=== PATIENT | female | born 1955 | race Caucasian/White ===

== ENCOUNTER 2021-08-04 15:52 | Inpatient (IN) ==
[2021-08-04] MEDS ORDERED: ASPIRIN 325 MG TABLET ONE (16:09)
[2021-08-04] MEDS ORDERED: HEPARIN 5,000 UNIT/1 ML VIAL ONE (16:09)
[2021-08-04] MEDS ORDERED: MORPHINE 2 MG/1 ML SYRINGE ONE (16:13)
[2021-08-04] MEDS ORDERED: NITROGLYCERIN SL 0.4 MG TABLET SL ONE (16:14)
[2021-08-04] MEDS ORDERED: ONDANSETRON 4 MG/2 ML VIAL ONE (16:14)
[2021-08-04] MEDS ORDERED: TIROFIBAN 5,000 MCG/100 ML PREMIX IV ONE ×2 (16:14→16:34)
[2021-08-04] MEDS ORDERED: TIROFIBAN IV ONE (16:16)
[2021-08-04] MEDS ORDERED: MORPHINE 2 MG/1 ML SYRINGE IV STA (16:17)
[2021-08-04] MEDS ORDERED: HEPARIN 5,000 UNIT/1 ML VIAL IV ONE (16:17)
[2021-08-04] MEDS ORDERED: ASPIRIN CHEW 81 MG TABLET PO STA (16:17)
[2021-08-04] MEDS ORDERED: NITROGLYCERIN SL 0.4 MG TABLET SL STA (16:17)
[2021-08-04] MEDS ORDERED: HYDROmorphone 1 MG/1 ML SYRINGE ONE (16:24)
[2021-08-04] MEDS ORDERED: MIDAZOLAM 2 MG/2 ML VIAL ONE (16:24)
[2021-08-04] MEDS ORDERED: MAGNESIUM SULF RIDER 2 GM/50 ML PREMIX IV PRN (16:28)
[2021-08-04] MEDS ORDERED: MORPHINE 2 MG/1 ML SYRINGE IV PRN (16:28)
[2021-08-04] MEDS ORDERED: ALUMINUM/MAGNES/SIMETH MAX STR 30 ML UDCUP PO PRN (16:28)
[2021-08-04] MEDS ORDERED: ZALEPLON 5 MG CAPSULE PO PRN (16:28)
[2021-08-04] MEDS ORDERED: guaiFENesin/DM ER 600-30 MG TABLET PO PRN (16:28)
[2021-08-04] MEDS ORDERED: POTASSIUM CHLORIDE 20 MEQ TABLET PO PRN (16:28)
[2021-08-04] MEDS ORDERED: hydrALAZINE 20 MG/1 ML VIAL IV PRN (16:28)
[2021-08-04] MEDS ORDERED: ACETAMINOPHEN 325 MG TABLET PO PRN (16:28)
[2021-08-04] MEDS ORDERED: DOCUSATE SODIUM 100 MG CAPSULE PO PRN (16:28)
[2021-08-04] MEDS ORDERED: diphenhydrAMINE CAP 25 MG CAPSULE PO PRN (16:28)
[2021-08-04] MEDS ORDERED: MAGNESIUM SULF RIDER 4 GM/100 ML PREMIX IV PRN (16:28)
[2021-08-04] MEDS ORDERED: ONDANSETRON 4 MG/2 ML VIAL IV PRN (16:28)
[2021-08-04] MEDS ORDERED: TIROFIBAN 5,000 MCG/100 ML PREMIX IV SCH ×2 (16:30→17:05)
[2021-08-04] MEDS ORDERED: ATROPINE 1 MG/10 ML SYRINGE ONE (16:37)
[2021-08-04 16:38] LABS: Hemoglobin 13.6 GM/DL (12.0-16.0); Immature Granulocytes % 0.6 %; Immature Granulocytes Absolute 0.03 #; Lymphocytes # 1.2 10*3/uL (1.4-4.0); Lymphocytes % 24.2 % (21.3-54.2); Mean Corpuscular HGB Conc 33.2 GM/DL (32-36); Mean Corpuscular Volume 87.6 FL (87-102); Mean Platelet Volume 9.8 FL (9.6-12.0); Monocytes % 14.5 % (1.7-12.7); Neutrophils % 60.7 % (38.7-73.9); Platelet Count 176 T/CUMM (130-400); Red Blood Count 4.68 MC/CUMM (3.8-5.5); Red Cell Distribution Width 14.2 % (9.3-17.3)
[2021-08-04 16:52] LABS: Alanine Aminotransferase 22 U/L (13-56); Albumin 3.5 G/DL (3.4-5.0); Alkaline Phosphatase 104 U/L (45-117); Aspartate Amino Transferase 22 U/L (0-37); Blood Urea Nitrogen 12 MG/DL (7-18); Calcium 8.9 MG/DL (8.5-10.1); Carbon Dioxide 23 MMOL/L (21-32); Estimated Glom Filtration Rate 87 ML/MIN; Glucose 151 MG/DL (74-106); Osmolality,Calculated 277.7 MOS/KG (273-304); Potassium 3.5 MMOL/L (3.5-5.1); Sodium 138 MMOL/L (136-145); Total Protein 7.6 G/DL (6.4-8.2)
[2021-08-04] MEDS ORDERED: PRASUGREL 10 MG TABLET ONE (17:01)
[2021-08-04 17:21] LABS: INR 1.1; PT Patient Result 12.3 SECS (10.5-12.0)
[2021-08-04 17:24] LABS: Partial Thromboplastin Time > 211.8 SECS (23.8-32.1)
[2021-08-04] MEDS: SODIUM CHLORIDE 0.45% 1,000 ML IV SCH (17:48)
[2021-08-04] MEDS ORDERED: TICAGRELOR 90 MG TABLET PO SCH (21:00)
[2021-08-04] MEDS ORDERED: POTASSIUM CHLORIDE 20 MEQ TABLET PO ONE (21:19)
[2021-08-04] MEDS ORDERED: AMIODARONE INJ 150 MG in DEXTROSE 5% 100 ML IV ONE (21:20)
[2021-08-04] MEDS ORDERED: AMIODARONE INJ 450 MG in DEXTROSE 5% 241 ML IV SCH (21:30)
[2021-08-04] MEDS: ROSUVASTATIN 20 MG TABLET PO SCH (22:00)
[2021-08-05] MEDS: SODIUM CHLORIDE 0.45% 1,000 ML IV SCH (01:38)
[2021-08-05] MEDS ORDERED: AMIODARONE INJ 450 MG in DEXTROSE 5% 241 ML IV SCH (03:30)
[2021-08-05 06:12] LABS: Hematocrit 35.5 VOL% (35.7-47.0); Hemoglobin 11.8 GM/DL (12.0-16.0); Lymphocytes # 1.6 10*3/uL (1.4-4.0); Lymphocytes % 34.4 % (21.3-54.2); Mean Corpuscular HGB Conc 33.2 GM/DL (32-36); Mean Corpuscular Volume 86.8 FL (87-102); Mean Platelet Volume 9.6 FL (9.6-12.0); Monocytes % 11.8 % (1.7-12.7); Neutrophils % 53.8 % (38.7-73.9); Platelet Count 161 T/CUMM (130-400); Red Blood Count 4.09 MC/CUMM (3.8-5.5); Red Cell Distribution Width 14.4 % (9.3-17.3); White Blood Count 4.5 T/CUMM (4-12)
[2021-08-05 06:43] LABS: Calcium 8.1 MG/DL (8.5-10.1); Risk Ratio 4.41; Thyroid Stimulating Hormone 0.175 uIU/ml (0.358-3.74); VLDL Cholesterol 33.2 MG/DL
[2021-08-05] MEDS: TICAGRELOR 90 MG TABLET PO SCH ×2 (09:41→20:08)
[2021-08-05] MEDS: ASPIRIN EC 81 MG TABLET PO SCH (09:41)
[2021-08-05] MEDS: METOPROLOL TARTRATE 25 MG TABLET PO SCH ×2 (09:41→20:08)
[2021-08-05] MEDS: PANTOPRAZOLE 40 MG TABLET PO SCH (09:42)
[2021-08-05] MEDS: ROSUVASTATIN 20 MG TABLET PO SCH (20:08)
[2021-08-05] MEDS: AMIODARONE 200 MG TABLET PO SCH (20:08)
[2021-08-06 05:39] LABS: Hematocrit 37.5 VOL% (35.7-47.0); Immature Granulocytes % 0.3 %; Immature Granulocytes Absolute 0.02 #; Lymphocytes # 1.1 10*3/uL (1.4-4.0); Lymphocytes % 17.6 % (21.3-54.2); Mean Corpuscular Volume 90.1 FL (87-102); Monocytes % 8.1 % (1.7-12.7); Platelet Count 132 T/CUMM (130-400); Red Blood Count 4.16 MC/CUMM (3.8-5.5); White Blood Count 6.2 T/CUMM (4-12)
[2021-08-06 06:20] LABS: Albumin 2.9 G/DL (3.4-5.0); Bilirubin,Total 0.4 MG/DL (0.20-1.00); Calcium 8.4 MG/DL (8.5-10.1); Osmolality,Calculated 270.1 MOS/KG (273-304); Potassium 4.4 MMOL/L (3.5-5.1); Total Protein 6.4 G/DL (6.4-8.2)
[2021-08-06] MEDS: ASPIRIN EC 81 MG TABLET PO SCH (08:08)
[2021-08-06] MEDS: TICAGRELOR 90 MG TABLET PO SCH ×2 (08:08→20:28)
[2021-08-06] MEDS: AMIODARONE 200 MG TABLET PO SCH ×2 (08:08→20:28)
[2021-08-06] MEDS: PANTOPRAZOLE 40 MG TABLET PO SCH (08:08)
[2021-08-06] MEDS: METOPROLOL TARTRATE 25 MG TABLET PO SCH ×2 (08:08→20:28)
[2021-08-06] MEDS ORDERED: FUROSEMIDE 40 MG/4 ML VIAL IV ONE (17:56)
[2021-08-06] MEDS ORDERED: ALBUTEROL/IPRATROPIUM 3 ML NEB RESP TX ONE (17:56)
[2021-08-06] MEDS: ROSUVASTATIN 20 MG TABLET PO SCH (20:27)
[2021-08-07 05:40] LABS: Albumin 3.1 G/DL (3.4-5.0); Bilirubin,Total 0.6 MG/DL (0.20-1.00); Calcium 8.4 MG/DL (8.5-10.1); Potassium 3.2 MMOL/L (3.5-5.1); Total Protein 6.5 G/DL (6.4-8.2)
[2021-08-07] MEDS ORDERED: POTASSIUM CHLORIDE 20 MEQ TABLET PO ONE (07:52)
[2021-08-07] MEDS: METOPROLOL TARTRATE 25 MG TABLET PO SCH (08:24)
[2021-08-07] MEDS: ASPIRIN EC 81 MG TABLET PO SCH (08:24)
[2021-08-07] MEDS: PANTOPRAZOLE 40 MG TABLET PO SCH (08:24)
[2021-08-07] MEDS: AMIODARONE 200 MG TABLET PO SCH (08:24)
[2021-08-07] MEDS: TICAGRELOR 90 MG TABLET PO SCH (08:24)
[2021-08-07 11:49] VITALS: BP 94/49
== END 2021-08-07 14:27 | disposition home or self-care (01) | DRG 247 ==
LOC: N.ED 15:52 → N.CC 16:15 → N.EDINP 16:25 → N.CC 17:11 → N.TELES 08-06 17:57
PROVIDERS: ADMIT Internal Medicine Cardiovascular Disease; ATTEND Internal Medicine Cardiovascular Disease
PROC: CLCCHCL (ICD-10-PCS; 2021-08-04 17:00)

== ENCOUNTER 2022-01-09 05:48 | Observation (INO) ==
[2022-01-09] MEDS ORDERED: TICAGRELOR 90 MG TABLET PO STA (06:22)
[2022-01-09] MEDS ORDERED: ASPIRIN 325 MG TABLET PO STA (06:22)
[2022-01-09] MEDS ORDERED: NITROGLYCERIN SL 0.4 MG TABLET SL PRN (06:22)
[2022-01-09] MEDS ORDERED: NITROGLYCERIN 2% OINT 1 INCH/GM PACK TOP STA (06:22)
[2022-01-09 06:23] LABS: Basophils % 0.1 % (0.0-0.8); Hematocrit 40.7 VOL% (35.7-47.0); Hemoglobin 13.3 GM/DL (12.0-16.0); Immature Granulocytes % 0.3 %; Immature Granulocytes Absolute 0.03 #; Lymphocytes # 2.4 10*3/uL (1.4-4.0); Lymphocytes % 21.8 % (21.3-54.2); Mean Corpuscular HGB Conc 32.7 GM/DL (32-36); Mean Corpuscular Volume 92.3 FL (87-102); Mean Platelet Volume 11.3 FL (9.6-12.0); Monocytes # 0.8 10*3/uL (0.11-0.8); Monocytes % 7.4 % (1.7-12.7); Neutrophils % 70.4 % (38.7-73.9); Platelet Count 236 T/CUMM (130-400); Red Blood Count 4.41 MC/CUMM (3.8-5.5); Red Cell Distribution Width 15.1 % (9.3-17.3); White Blood Count 11.2 T/CUMM (4-12)
[2022-01-09 07:13] LABS: Albumin 3.8 G/DL (3.4-5.0); Bilirubin,Total 0.9 MG/DL (0.20-1.00); Calcium 9.5 MG/DL (8.5-10.1); Osmolality,Calculated 279.4 MOS/KG (273-304); Potassium 4.4 MMOL/L (3.5-5.1); Total Protein 7.6 G/DL (6.4-8.2)
[2022-01-09] MEDS ORDERED: MORPHINE 2 MG/1 ML SYRINGE IV STA (07:35)
[2022-01-09] MEDS ORDERED: AZITHROMYCIN INJ 500 MG in SODIUM CHLORIDE 0.9% 250 ML IV STA (09:25)
[2022-01-09] MEDS ORDERED: cefTRIAXone 1,000 MG in SODIUM CHLORIDE 0.9% 100 ML IV STA (09:25)
[2022-01-09] MEDS ORDERED: GLUCAGON 1 MG VIAL IM PRN (11:19)
[2022-01-09] MEDS ORDERED: DEXTROSE 10% 250 ML BAG IV PRN (11:19)
[2022-01-09] MEDS ORDERED: ALUM/MAG/SIMETH/LIDO VISC 1:1 30 ML BOTTLE PO PRN (11:21)
[2022-01-09] MEDS ORDERED: ENOXAPARIN 40 MG/0.4 ML SYRINGE SUBCUT SCH (11:30)
[2022-01-09] MEDS ORDERED: LACTATED RINGERS 1,000 ML IV SCH (11:30)
[2022-01-09] MEDS ORDERED: hydrALAZINE 20 MG/1 ML VIAL IV PRN (11:40)
[2022-01-09] MEDS: PANTOPRAZOLE 40 MG TABLET PO SCH ×2 (12:20→21:36)
[2022-01-09] MEDS: VALSARTAN 80 MG TABLET PO SCH (14:35)
[2022-01-09] MEDS ORDERED: FUROSEMIDE 40 MG/4 ML VIAL IV ONE (15:27)
[2022-01-09] MEDS ORDERED: METOPROLOL TARTRATE 25 MG TABLET PO SCH (21:00)
[2022-01-09] MEDS ORDERED: ROSUVASTATIN 20 MG TABLET PO SCH (21:00)
[2022-01-09] MEDS ORDERED: AMIODARONE 200 MG TABLET PO SCH (21:00)
[2022-01-09] MEDS: TICAGRELOR 90 MG TABLET PO SCH (21:36)
[2022-01-09] MEDS: METOPROLOL TARTRATE 25 MG TABLET PO SCH (21:36)
[2022-01-10 04:52] LABS: Basophils % 0.1 % (0.0-0.8); Hematocrit 33.5 VOL% (35.7-47.0); Immature Granulocytes % 0.4 %; Immature Granulocytes Absolute 0.03 #; Lymphocytes # 1.7 10*3/uL (1.4-4.0); Lymphocytes % 21.9 % (21.3-54.2); Mean Corpuscular HGB Conc 32.8 GM/DL (32-36); Mean Corpuscular Volume 91.8 FL (87-102); Mean Platelet Volume 10.2 FL (9.6-12.0); Neutrophils % 64.6 % (38.7-73.9); Red Blood Count 3.65 MC/CUMM (3.8-5.5); Red Cell Distribution Width 14.6 % (9.3-17.3); White Blood Count 7.9 T/CUMM (4-12)
[2022-01-10 04:57] LABS: Platelet Count 150 T/CUMM (130-400)
[2022-01-10 05:00] LABS: Calcium 8.4 MG/DL (8.5-10.1); Osmolality,Calculated 274.8 MOS/KG (273-304); Potassium 3.3 MMOL/L (3.5-5.1)
[2022-01-10 05:20] LABS: Risk Ratio 1.73
[2022-01-10] MEDS: POTASSIUM CHLORIDE 20 MEQ TABLET PO PRN ×2 (06:49→08:34)
[2022-01-10 08:33] VITALS: BP 102/37
[2022-01-10] MEDS: METOPROLOL TARTRATE 25 MG TABLET PO SCH (08:34)
[2022-01-10] MEDS: TICAGRELOR 90 MG TABLET PO SCH (08:34)
[2022-01-10] MEDS: PANTOPRAZOLE 40 MG TABLET PO SCH (08:34)
[2022-01-10] MEDS: VALSARTAN 80 MG TABLET PO SCH (08:34)
[2022-01-10] MEDS ORDERED: ASPIRIN EC 81 MG TABLET PO SCH (09:00)
[2022-01-10] MEDS ORDERED: ASPIRIN EC 325 MG TABLET PO SCH (09:00)
[2022-01-10] MEDS ORDERED: AMIODARONE 200 MG TABLET PO SCH (09:00)
== END 2022-01-10 10:28 | disposition home or self-care (01) ==
LOC: N.ED 05:48 → N.EDINP 05:48 → N.2W 11:40
PROVIDERS: ADMIT Internal Medicine; ATTEND Internal Medicine